=== PATIENT | male | born 1955 | race Caucasian/White ===

== ENCOUNTER → 2021-04-14 | Outpatient (CLI) | payer BC ==
--- NOTE | 2021-04-14 13:00 | KCIC ---
EXAMINATION: MRI RIGHT KNEE WITHOUT IV CONTRAST CLINICAL HISTORY: MECHANICAL PAIN OF RIGHT KNEE. New onset of medial rt knee pain after golfing 3 wee ks ago. TECHNIQUE: Multiplanar multisequential images obtained through the knee without intravenous contrast. COMPARISON: None FINDINGS: MENISCI: Medial Meniscus: Intact. Lateral Meniscus: Intact. LIGAMENTS: ACL: Intact PCL: Intact MCL: Moderate grade sprain (grade 2) LCL Complex: Intact CARTILAGE: Tricompartmental tiny foci of hypointense signal on all sequences, compatible with chondrocalcinosis. Medial Femoral Condyle: Scattered small areas of low grade (less than 50% thickness) partial thicknes s cartilage loss and or fissuring Medial Tibial Plateau: Normal Lateral Femoral Condyle: Normal Lateral Tibial Plateau: Normal Patella: Moderate sized area(s) of predominantly low grade (less than 50% thickness) cartilage loss a nd or fissuring with smaller area(s) of full thickness cartilage loss and or fissuring with subchondr al marrow reactive/cystic changes Trochlea: Small area of full thickness cartilage loss and or fissuring in the lateral trochlea TENDONS: Distal quadriceps and patellar tendons intact. Popliteus tendon intact. BONES AND MARROW: No evidence of acute fracture or suspicious marrow replacing process. MUSCLES: Muscle bulk and signal intensity within normal limits. JOINT FLUID AND SYNOVIUM: Moderate joint effusion. Mild synovitis. Moderate Henry's cyst, partially r uptured inferiorly. IMPRESSION: Moderate MCL sprain. No visualized meniscus tear. Mild to moderate full-thickness chondral wear in the patella. Electronically signed by: Ilya Paez DO (04/14/2021 12:57 PM) [facility]
== END ==
LOC: KCIC MRI 09:58
PROVIDERS: ATTEND Orthopaedic Surgery Sports Medicine
DX: S83.411A Sprain of medial collateral ligament of right knee, initial encounter (principal); M25.461 Effusion, right knee; M65.88 Other synovitis and tenosynovitis, other site; M71.21 Synovial cyst of popliteal space [Baker], right knee; X58.XXXA Exposure to other specified factors, initial encounter; Y93.89 Activity, other specified; Y92.89 Other specified places as the place of occurrence of the external cause; Y99.8 Other external cause status
CPT/HCPCS: 73721